=== PATIENT | female | born 1970 | race American Indian/Alaskan Native ===

== ENCOUNTER 2020-07-14 17:55 | Emergency (ER) | payer SELFPAY ==
[2020-07-14 18:56] LABS: Basophils % (Auto) 0.2 % (0.0-1.8); Eosinophils # (Auto) 0.1 K/mm3 (0.0-0.4); Eosinophils % (Auto) 1.1 % (0.0-4.3); Hemoglobin 10.1 gm/dl (10.1-14.3); Lymphocytes # (Auto) 2.8 K/mm3 (1.2-5.4); Lymphocytes % (Auto) 33.3 % (13.4-35.0); Mean Corpuscular HGB Conc 33 % (30-34); Mean Corpuscular Volume 84 fl (79-97); Monocytes # (Auto) 0.6 K/mm3 (0.0-0.8); Platelet Count 410 K/mm3 (140-440); Red Blood Count 3.68 M/mm3 (3.65-5.03); Red Cell Distribution Width 16.3 % (13.2-15.2)
[2020-07-14 19:11] LABS: Alanine Aminotransferase 12 units/L (7-56); Albumin 3.9 g/dL (3.9-5); BUN/Creatinine Ratio 11; Blood Urea Nitrogen 10 mg/dL (7-17); Calcium 9.7 mg/dL (8.4-10.2); Hemolysis Index 0
[2020-07-14 22:01] LABS: Bilirubin,Urine NEG (Negative); Blood,Urine SM (Negative); Color,Urine Yellow (Yellow); Mucus,Urine FEW /HPF; Protein,Urine <15 mg/dL mg/dL (Negative)
[2020-07-14 22:05] LABS: Amphetamine Screen,Urine Negative; Benzodiazepines Screen,Urine Negative; Cannabinoid Screen,Urine Negative; Cocaine Screen,Urine Negative; Methadone Screen,Urine Negative; Opiate Screen,Urine Negative
--- NOTE | 2020-07-14 22:19 | Emergency Department Report ---
ED Psych HPI - General Chief Complaint: Medical Clearance Stated Complaint: HEAD PAIN/ PERSONAL PROBLEM Time Seen by Provider: 07/14/20 21:49 Source: patient Mode of arrival: Ambulatory - History of Present Illness Initial Comments: Patient is a 50-year-old F Congolese female with no known past medical history who is presenting with what appears to be delusions and psychosis. Patient is is checked in because she stated that there are things pressing on her head that is making her hair met. States the control that her has over her during their 5-year divorce is causing her hair to change in texture. She also states that there is a heroin type substance around her home forming a perimeter. States that there is a shingles and patches that are occurring on her pants. Patient very difficult to understand and is not giving a linear story. Patient is is not having any homicidal suicidal thoughts at this time. - Related Data Allergies Allergy/AdvReac Type Severity Reaction Status Date / Time No Known Allergies Allergy Unverified 07/14/20 18:17 ED Review of Systems ROS: Stated complaint: HEAD PAIN/ PERSONAL PROBLEM Other details as noted in HPI Comment: All other systems reviewed and negative ED Past Medical Hx - Past Medical History Previous Medical History?: No - Surgical History Past Surgical History?: No - Social History Smoking Status: Never Smoker Substance Use Type: None ED Physical Exam - General Limitations: No Limitations General appearance: alert, in no apparent distress - Head Head exam: Present: atraumatic, normocephalic - Eye Eye exam: Present: normal appearance, PERRL, EOMI - ENT ENT exam: Present: normal orophraynx, mucous membranes moist - Neck Neck exam: Present: normal inspection - Respiratory Respiratory exam: Present: normal lung sounds bilaterally. Absent: respiratory distress, wheezes, rales, rhonchi - Cardiovascular Cardiovascular Exam: Present: regular rate, normal rhythm, normal heart sounds. Absent: systolic murmur, diastolic murmur, rubs, gallop - GI/Abdominal GI/Abdominal exam: Present: soft, normal bowel sounds. Absent: distended, tenderness, guarding, rebound - Extremities Exam Extremities exam: Present: normal inspection - Back Exam Back exam: Present: normal inspection - Neurological Exam Neurological exam: Present: alert, oriented X3 - Psychiatric Psychiatric exam: Present: normal affect, normal mood - Skin Skin exam: Present: warm, dry, intact, normal color. Absent: rash ED Course Vital Signs 07/14/20 18:18 Temperature 99.0 F Pulse Rate 113 H Respiratory 20 Rate Blood Pressure 182/86 O2 Sat by Pulse 98 Oximetry - Reevaluation(s) Reevaluation #1: 07/14/20 22:19 Patient medically cleared for psychiatric evaluation at this time ED Medical Decision Making - Lab Data Result diagrams: 07/14/20 18:36 07/14/20 18:36 Lab Results 07/14/20 07/14/20 07/14/20 Range/Units 18:36 18:36 18:36 WBC 8.5 (4.5-11.0) K/mm3 RBC 3.68 (3.65-5.03) M/mm3 Hgb 10.1 (10.1-14.3) gm/dl Hct 31.0 (30.3-42.9) % MCV 84 (79-97) fl MCH 28 (28-32) pg MCHC 33 (30-34) % RDW 16.3 H (13.2-15.2) % Plt Count 410 (140-440) K/mm3 Lymph % (Auto) 33.3 (13.4-35.0) % [place] % (Auto) 7.0 (0.0-7.3) % Eos % (Auto) 1.1 (0.0-4.3) % Baso % (Auto) 0.2 (0.0-1.8) % Lymph # (Auto) 2.8 (1.2-5.4) K/mm3 [place] # (Auto) 0.6 (0.0-0.8) K/mm3 Eos # (Auto) 0.1 (0.0-0.4) K/mm3 Baso # (Auto) 0.0 (0.0-0.1) K/mm3 Seg Neutrophils % 58.4 (40.0-70.0) % Seg Neutrophils # 5.0 (1.8-7.7) K/mm3 Sodium 140 (137-145) mmol/L Potassium 3.8 (3.6-5.0) mmol/L Chloride 106.1 (98-107) mmol/L Carbon Dioxide 22 (22-30) mmol/L Anion Gap 16 mmol/L BUN 10 (7-17) mg/dL Creatinine 0.9 (0.6-1.2) mg/dL Estimated GFR > 60 ml/min BUN/Creatinine Ratio 11 % Glucose 113 H (65-100) mg/dL Calcium 9.7 (8.4-10.2) mg/dL Total Bilirubin < 0.20 (0.1-1.2) mg/dL AST 15 (5-40) units/L ALT 12 (7-56) units/L Alkaline Phosphatase 68 (35-129) units/L Total Protein 7.4 (6.3-8.2) g/dL Albumin 3.9 (3.9-5) g/dL Albumin/Globulin Ratio 1.1 % Urine Color (Yellow) Urine Turbidity (Clear) Urine pH (5.0-7.0) Ur Specific [place] (1.003-1.030) Urine Protein (Negative) mg/dL Urine Glucose (UA) (Negative) mg/dL Urine Ketones (Negative) mg/dL Urine Blood (Negative) Urine Nitrite (Negative) Urine Bilirubin (Negative) Urine Urobilinogen (<2.0) mg/dL Ur Leukocyte Esterase (Negative) Urine WBC (Auto) (0.0-6.0) /HPF Urine RBC (Auto) (0.0-6.0) /HPF U Epithel Cells (Auto) (0-13.0) /HPF Urine Mucus /HPF Salicylates < 0.3 L (2.8-20.0) mg/dL Urine Opiates Screen Urine Methadone Screen Acetaminophen (10.0-30.0) ug/mL Ur Barbiturates Screen Ur Phencyclidine Scrn Ur Amphetamines Screen U Benzodiazepines Scrn Urine Cocaine Screen U Marijuana (THC) Screen Drugs of Abuse Note Plasma/Serum Alcohol (0-0.07) % 07/14/20 07/14/20 07/14/20 Range/Units 18:36 18:36 21:47 WBC (4.5-11.0) K/mm3 RBC (3.65-5.03) M/mm3 Hgb (10.1-14.3) gm/dl Hct (30.3-42.9) % MCV (79-97) fl MCH (28-32) pg MCHC (30-34) % RDW (13.2-15.2) % Plt Count (140-440) K/mm3 Lymph % (Auto) (13.4-35.0) % [place] % (Auto) (0.0-7.3) % Eos % (Auto) (0.0-4.3) % Baso % (Auto) (0.0-1.8) % Lymph # (Auto) (1.2-5.4) K/mm3 [place] # (Auto) (0.0-0.8) K/mm3 Eos # (Auto) (0.0-0.4) K/mm3 Baso # (Auto) (0.0-0.1) K/mm3 Seg Neutrophils % (40.0-70.0) % Seg Neutrophils # (1.8-7.7) K/mm3 Sodium (137-145) mmol/L Potassium (3.6-5.0) mmol/L Chloride (98-107) mmol/L Carbon Dioxide (22-30) mmol/L Anion Gap mmol/L BUN (7-17) mg/dL Creatinine (0.6-1.2) mg/dL Estimated GFR ml/min BUN/Creatinine Ratio % Glucose (65-100) mg/dL Calcium (8.4-10.2) mg/dL Total Bilirubin (0.1-1.2) mg/dL AST (5-40) units/L ALT (7-56) units/L Alkaline Phosphatase (35-129) units/L Total Protein (6.3-8.2) g/dL Albumin (3.9-5) g/dL Albumin/Globulin Ratio % Urine Color Yellow (Yellow) Urine Turbidity Clear (Clear) Urine pH 6.0 (5.0-7.0) Ur Specific [place] 1.023 (1.003-1.030) Urine Protein <15 mg/dl (Negative) mg/dL Urine Glucose (UA) Neg (Negative) mg/dL Urine Ketones Neg (Negative) mg/dL Urine Blood Sm (Negative) Urine Nitrite Neg (Negative) Urine Bilirubin Neg (Negative) Urine Urobilinogen 4.0 (<2.0) mg/dL Ur Leukocyte Esterase Neg (Negative) Urine WBC (Auto) 1.0 (0.0-6.0) /HPF Urine RBC (Auto) 6.0 (0.0-6.0) /HPF U Epithel Cells (Auto) 1.0 (0-13.0) /HPF Urine Mucus Few /HPF Salicylates (2.8-20.0) mg/dL Urine Opiates Screen Urine Methadone Screen Acetaminophen 5.0 L (10.0-30.0) ug/mL Ur Barbiturates Screen Ur Phencyclidine Scrn Ur Amphetamines Screen U Benzodiazepines Scrn Urine Cocaine Screen U Marijuana (THC) Screen Drugs of Abuse Note Plasma/Serum Alcohol < 0.01 (0-0.07) % 07/14/20 Range/Units 21:47 WBC (4.5-11.0) K/mm3 RBC (3.65-5.03) M/mm3 Hgb (10.1-14.3) gm/dl Hct (30.3-42.9) % MCV (79-97) fl MCH (28-32) pg MCHC (30-34) % RDW (13.2-15.2) % Plt Count (140-440) K/mm3 Lymph % (Auto) (13.4-35.0) % [place] % (Auto) (0.0-7.3) % Eos % (Auto) (0.0-4.3) % Baso % (Auto) (0.0-1.8) % Lymph # (Auto) (1.2-5.4) K/mm3 [place] # (Auto) (0.0-0.8) K/mm3 Eos # (Auto) (0.0-0.4) K/mm3 Baso # (Auto) (0.0-0.1) K/mm3 Seg Neutrophils % (40.0-70.0) % Seg Neutrophils # (1.8-7.7) K/mm3 Sodium (137-145) mmol/L Potassium (3.6-5.0) mmol/L Chloride (98-107) mmol/L Carbon Dioxide (22-30) mmol/L Anion Gap mmol/L BUN (7-17) mg/dL Creatinine (0.6-1.2) mg/dL Estimated GFR ml/min BUN/Creatinine Ratio % Glucose (65-100) mg/dL Calcium (8.4-10.2) mg/dL Total Bilirubin (0.1-1.2) mg/dL AST (5-40) units/L ALT (7-56) units/L Alkaline Phosphatase (35-129) units/L Total Protein (6.3-8.2) g/dL Albumin (3.9-5) g/dL Albumin/Globulin Ratio % Urine Color (Yellow) Urine Turbidity (Clear) Urine pH (5.0-7.0) Ur Specific [place] (1.003-1.030) Urine Protein (Negative) mg/dL Urine Glucose (UA) (Negative) mg/dL Urine Ketones (Negative) mg/dL Urine Blood (Negative) Urine Nitrite (Negative) Urine Bilirubin (Negative) Urine Urobilinogen (<2.0) mg/dL Ur Leukocyte Esterase (Negative) Urine WBC (Auto) (0.0-6.0) /HPF Urine RBC (Auto) (0.0-6.0) /HPF U Epithel Cells (Auto) (0-13.0) /HPF Urine Mucus /HPF Salicylates (2.8-20.0) mg/dL Urine Opiates Screen Negative Urine Methadone Screen Negative Acetaminophen (10.0-30.0) ug/mL Ur Barbiturates Screen Negative Ur Phencyclidine Scrn Negative Ur Amphetamines Screen Negative U Benzodiazepines Scrn Negative Urine Cocaine Screen Negative U Marijuana (THC) Screen Negative Drugs of Abuse Note Disclamer Plasma/Serum Alcohol (0-0.07) % Critical care attestation.: If time is entered above; I have spent that time in minutes in the direct care of this critically ill patient, excluding procedure time. ED Disposition Condition: Stable
[2020-07-15] MEDS ORDERED: NALOXONE 2 MG/2 ML INJ ONE (08:24)
[2020-07-15] MEDS ORDERED: LORazepam 2 MG/ML VIAL ONE ×2 (08:28→08:39)
--- NOTE | 2020-07-15 08:42 | Consultation ---
History of Present Illness - Reason for Consult Consult date: 07/15/20 Reason for consult: MHE Requesting physician: ANDRÉS GEE - History of Present Psychiatric Illness Per ED Provider: Patient is a 50-year-old F [place] female with no known past medical history who is presenting with what appears to be delusions and psychosis. Patient is is checked in because she stated that there are things pressing on her head that is making her hair met. States the control that her has over her during their 5-year divorce is causing her hair to change in texture. She also states that there is a heroin type substance around her home forming a perimeter. States that there is a shingles and patches that are occurring on her pants. Patient very difficult to understand and is not giving a linear story. Patient is is not having any homicidal suicidal thoughts at this time. PSYCH HPI Patient is a 50-year-old , homeless female with unspecified past psychiatric history who states that" they have tried to pull me crazy but I am not crazy". Patient reports she is here because she has been having burning in the area of her scalp states she pulls her hair she sees budds she bounced them in the head area attaches. 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 Says she is still going through divorce for 5 years hence why she movies around to avoid her ex. Patient reported having kids in the state of [place] she gave me a number for Archana who is one of her daughter at [phone]. Patient appears very disorganized, Attempt was made to contact Archana but no one is picking up. PAST PSYCHIATRIC HISTORY Diagnoses: Unspecified Suicide attempts or Self-harm behavior: None report Prior psychiatric hospitalizations: Unknown Substance Abuse history: Unknown Previous psychiatric medications tried: Unknown Outpatient treatment: Unknown PAST MEDICAL HISTORY: None reported Family Psychiatric History: None reported or documented SOCIAL HISTORY Marital Status: Living Arrangements: Homeless Employment Status: Retired Access to guns/weapons: None reported Education: College History of Abuse: Unknown Legal History: None reported REVIEW OF SYSTEMS Constitutional: Negative for weight loss ENT: Negative for stridor Respiratory: Negative for cough or hemoptysis All other systems reviewed and are negative MENTAL STATUS EXAMINATION General Appearance and Behavior: Age appropriate, good hygiene, not wearing appropriate clothes, good eye contact, cooperative polite with questioning. Cooperation: Participating/engaged Psychomotor Behavior: Psychomotor normal Mood: Good Affect and affective range: euthymic, euphoric Thought Process:Circumstantial, Illogical, Thought Content: Flight of ideas, Illogical, Grandiose, Speech: pressured, loud volume at times Intellectual Functioning: Average Suicidal Ideation: Denies SI Homicidal Ideation: Denies HIl Impulse Control: Impaired Insight and Judgment: Limited insight and judgment Memory: Normal, Attention: Divided attention impaired Orientation: Alert, oriented, Assessment and Plan - Psychiatric problem (1) Schizophrenia Current Visit: Yes Status: Acute Treatment Plan MEDICATIONS: Risks, benefits and alternatives of medications discussed with the patient, questions answered and consent obtained from patient. PSYCHOTHERAPY: Supportive psychotherapy provided MEDICAL: Per primary team DELIRIUM PRECAUTIONS: Please re-orient patient frequently, keep lights on during the day, and minimize benzodiazepines and opiates as these medications could worsen patient's confusion. 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 Case discussed with Dr. Cid who agrees with current disposition LEGAL STATUS: 1013 FOLLOW-UP: Will follow Thank you for the consult. Please contact with any questions and/or concerns. Medications and Allergies Allergies Allergy/AdvReac Type Severity Reaction Status Date / Time No Known Allergies Allergy Unverified 07/14/20 18:17 Mental Status Exam - Vital signs Last Vital Signs Temp 98.0 F 07/15/20 08:12 Pulse 87 07/15/20 08:12 Resp 20 07/15/20 08:12 BP 135/54 07/15/20 08:12 Pulse Ox 98 07/15/20 08:12 Results Result Diagrams: 07/14/20 18:36 07/14/20 18:36 Abnormal lab results 07/14/20 07/14/20 07/14/20 Range/Units 18:36 18:36 18:36 RDW 16.3 H (13.2-15.2) % Glucose 113 H (65-100) mg/dL Salicylates < 0.3 L (2.8-20.0) mg/dL Acetaminophen (10.0-30.0) ug/mL 07/14/20 Range/Units 18:36 RDW (13.2-15.2) % Glucose (65-100) mg/dL Salicylates (2.8-20.0) mg/dL Acetaminophen 5.0 L (10.0-30.0) ug/mL All other labs normal. Assessment and Plan - Psychiatric problem (1) Schizophrenia Current Visit: Yes Status: Acute
[2020-07-15] MEDS: HALOPERIDOL 2 MG TAB PO SCH ×2 (11:01→22:23)
[2020-07-15] MEDS: VALPROIC ACID 250 MG/5 ML ORAL LIQD PO SCH ×2 (11:01→22:23)
--- NOTE | 2020-07-15 15:40 | Cat Scan Report ---
CT head/brain wo con INDICATION: AMS. TECHNIQUE: Routine CT head. All CT scans at this location are performed using CT dose reduction for A DEONNA by means of automated exposure control. COMPARISON: None. FINDINGS: Intracranial: Sauer-white matter differentiation is maintained. No intracranial hemorrhage. No extra a xial collection. No hydrocephalus. No herniation. Sinuses: Incompletely visualized mucosal retention cyst in left maxillary sinus. Paranasal sinuses an d mastoid air cells are essentially clear. Orbits: Globes are intact. Calvarium: No acute fracture. IMPRESSION: 1. No acute intracranial abnormality. Signer Name: Raffi Gu MD Signed: 07/15/2020 3:35 PM Workstation Name: [email or web address]
[2020-07-15 16:10] LABS: HCG Qualitative,Urine Negative (Negative)
[2020-07-16 05:16] VITALS: BP 101/51
--- NOTE | 2020-07-16 09:07 | Progress Note ---
Subjective - Reason for Consult Consult date: 07/16/20 Reason for consult: psychosis - Chief Complaint Chief complaint: The patient was seen today. She is delusional. Her thoughts are disorganized. The patient says she is "resting." She says she did not sleep well. She says "somebody is squeezing my head and has my head matted up." She says "they have joined forces and programmed something inside of me." The patient says "I don't know who's doing it but they are squeezing my head." She denies SI/HI or hallucinations of any kind. The patient is gripping both sides of her head as she speaks. She describes her mood as "so so." REVIEW OF SYSTEMS Constitutional: Negative for weight loss ENT: Negative for stridor Respiratory: Negative for cough or hemoptysis All other systems reviewed and are negative MENTAL STATUS EXAMINATION General Appearance and Behavior: Age appropriate, good hygiene, not wearing appropriate clothes, good eye contact, cooperative polite with questioning. Cooperation: Participating/engaged Psychomotor Behavior: Psychomotor normal Mood: "so-so" Affect and affective range: Restricted Thought Process: Illogical Thought Content: delusions Speech: normal tone and pace Suicidal Ideation: Denies Homicidal Ideation: Denies Hallucinations: Denies Delusions: Yes Impulse Control: Impaired Insight and Judgment: Limited insight and judgment Memory: Normal Attention: Divided attention impaired Orientation: Alert, oriented, Assessment and Plan (1) Schizophrenia Current Visit: Yes Status: Acute Treatment Plan Start Risperidone 0.25mg po BID Start Trazodone 50mg po qhs Risks, benefits and alternatives of medications discussed with the patient, questions answered and consent obtained from patient. PSYCHOTHERAPY: Supportive psychotherapy provided MEDICAL: Per primary team DELIRIUM PRECAUTIONS: Please re-orient patient frequently, keep lights on during the day, and minimize benzodiazepines and opiates as these medications could worsen patient's confusion. 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 LEGAL STATUS: 1013 FOLLOW-UP: Will follow Thank you for the consult. Please contact with any questions and/or concerns. Case discussed with Dr. Cid who agrees with current disposition Mental Status Exam - Vital signs Last Vital Signs Temp 98.1 F 07/16/20 05:15 Pulse 76 07/16/20 05:15 Resp 18 07/16/20 05:15 BP 101/51 03/12/21 05:15 Pulse Ox 98 07/16/20 05:15
[2020-07-16] MEDS ORDERED: risperiDONE 0.25 MG TAB PO SCH (10:00)
[2020-07-16] MEDS ORDERED: traZODone 50 MG TAB PO SCH (22:00)
== END 2020-07-16 08:58 ==
LOC: ED 17:55 → EEVIPCON 17:55 → ED 07-16 08:58
DX: F22 Delusional disorders (principal); Z20.822 Contact with and (suspected) exposure to COVID-19
CPT/HCPCS: 36415; 70450; 80053; 80307; 81001; 81025; 85025; 99285; U0003; 80320; G0480; J2060; J2310

== ENCOUNTER 2020-11-26 03:05 | Emergency (ER) | payer SELFPAY ==
[2020-11-26 03:40] VITALS: BP 156/80
--- NOTE | 2020-11-26 05:40 | Emergency Department Report ---
ED General Adult HPI - General Chief complaint: Skin Rash Stated complaint: CHAFFING TO BUTTOCKS Source: patient, EMS Mode of arrival: Ambulatory Limitations: No Limitations - History of Present Illness Initial comments: Patient is a 50-year-old -[place] female with a history of paranoid schizophrenia, bipolar disorder, anxiety depression who presents to the ED with acute onset persistent itchy dry scaly rashes on her buttocks for the last 1 month. Patient states that the itching is worse when it is hot and when she sweats and states that the rashes have spread to her thighs posteriorly. Patient denies fever, chills, nausea, vomiting, fall, traumatic injury, numbness and tingling or weakness of lower extremities bilaterally, urinary frequency and urgency or chest pain and shortness of breath. MD Complaint: Diffuse dry itchy rashes on her buttocks -: Gradual, month(s) (1) Location: buttocks Radiation: non-radiation Severity scale (0 -10): 2 Quality: burning, aching, constant, other (Itchy) Consistency: constant Improves with: none Worsens with: none Associated Symptoms: denies other symptoms, rash (Dry itchy scaly rashes on her buttocks). denies: confusion, chest pain, cough, diaphoresis, fever/chills, headaches, loss of appetite, malaise, nausea/vomiting, seizure, shortness of breath, syncope, weakness, other Treatments Prior to Arrival: none - Related Data Previous Rx's Medication Instructions Recorded Last Taken Type Terbinafine HCl [Lamisil At 1% 30 gm TP TID #1 tube 11/26/20 Unknown Rx CREAM] Allergies Allergy/AdvReac Type Severity Reaction Status Date / Time No Known Allergies Allergy Unverified 07/14/20 18:17 ED Review of Systems ROS: Stated complaint: CHAFFING TO BUTTOCKS Other details as noted in HPI Constitutional: denies: chills, fever Eyes: denies: eye pain, eye discharge, vision change ENT: denies: ear pain, throat pain Respiratory: denies: cough, shortness of breath, wheezing Cardiovascular: denies: chest pain, palpitations Endocrine: no symptoms reported Gastrointestinal: denies: abdominal pain, nausea, diarrhea Genitourinary: denies: urgency, dysuria, discharge Musculoskeletal: denies: back pain, joint swelling, arthralgia Skin: rash (Dry scaly itchy rashes on the buttocks), pruritus. denies: lesions Neurological: denies: headache, weakness, paresthesias Psychiatric: denies: anxiety, depression Hematological/Lymphatic: denies: easy bleeding, easy bruising ED Past Medical Hx - Past Medical History Previous Medical History?: No Hx Psychiatric Treatment: Yes (Paranoid schizophrenia; bipolar; anxiety and depression) - Surgical History Past Surgical History?: No - Social History Smoking Status: Never Smoker Substance Use Type: None - Medications Home Medications: Home Medications Medication Instructions Recorded Confirmed Last Taken Type Terbinafine HCl [Lamisil At 1% 30 gm TP TID #1 tube 11/26/20 Unknown Rx CREAM] ED Physical Exam - General Limitations: No Limitations General appearance: alert, in no apparent distress - Head Head exam: Present: atraumatic, normocephalic, normal inspection - Eye Eye exam: Present: normal appearance, PERRL, EOMI Pupils: Present: normal accommodation - ENT ENT exam: Present: normal exam, normal orophraynx, mucous membranes moist, TM's normal bilaterally, normal external ear exam - Neck Neck exam: Present: normal inspection, full ROM - Respiratory Respiratory exam: Present: normal lung sounds bilaterally. Absent: respiratory distress, wheezes, rales, rhonchi, stridor, chest wall tenderness, accessory muscle use - Cardiovascular Cardiovascular Exam: Present: regular rate, normal rhythm, normal heart sounds. Absent: systolic murmur, diastolic murmur, rubs, gallop - GI/Abdominal GI/Abdominal exam: Present: soft, normal bowel sounds. Absent: tenderness, guarding, rebound, hyperactive bowel sounds - Extremities Exam Extremities exam: Present: normal inspection, full ROM, normal capillary refill - Back Exam Back exam: Present: normal inspection, full ROM. Absent: tenderness, CVA tenderness (R), CVA tenderness (L), muscle spasm, paraspinal tenderness - Neurological Exam Neurological exam: Present: alert, oriented X3, CN II-XII intact, normal gait, reflexes normal - Psychiatric Psychiatric exam: Present: normal affect, normal mood, anxious. Absent: homicidal ideation, suicidal ideation - Skin Skin exam: Present: warm, dry, intact, normal color, rash (Dry scaly rashes diffusely on the buttocks and thighs) ED Course Vital Signs 11/26/20 03:38 Pulse Rate 76 Respiratory 18 Rate Blood Pressure 156/80 O2 Sat by Pulse 100 Oximetry ED Medical Decision Making - Medical Decision Making This is a 50-year-old -[place] female with a history of paranoid schizophrenia, bipolar disorder, anxiety depression who presents to the ED with acute onset persistent itchy dry scaly rashes on her buttocks for the last 1 month. Patient states that the itching is worse when it is hot and when she sweats and states that the rashes have spread to her thighs posteriorly. In the ED, patient is alert and oriented x3 and is not in distress. Patient will discha rge home on medications based on the physical exam findings of dry scaly rashes on the buttocks consistent with tinea corporis. Patient was advised to follow-up with her primary care physician in 7 to 10 days for reevaluation or return to the ED immediately if symptoms get worse. - Differential Diagnosis Tinea corporis; eczema; cellulitis; folliculitis; Critical care attestation.: If time is entered above; I have spent that time in minutes in the direct care of this critically ill patient, excluding procedure time. ED Disposition Clinical Impression: Tinea corporis Disposition: DC-01 TO HOME OR SELFCARE Is pt being admited?: No Does the pt Need Aspirin: No Condition: Stable Instructions: Body Ringworm Additional Instructions: Apply the medication to the affected area as advised, drink plenty of fluids, follow-up with your primary care physician in 7 to 10 days for reevaluation. Return to the ED immediately if symptoms get worse. Prescriptions: Terbinafine HCl [Lamisil At 1% CREAM] 30 gm TP TID #1 tube Referrals: [facility] [Provider Group] - 3-5 Days Time of Disposition: 05:41 Print Language: PAKIST[place]
== END 2020-11-26 05:50 | disposition home or self-care (01) ==
LOC: ED 03:05
DX: B35.4 Tinea corporis (principal); F20.9 Schizophrenia, unspecified; F41.9 Anxiety disorder, unspecified; F31.9 Bipolar disorder, unspecified
CPT/HCPCS: 99283

== ENCOUNTER 2020-12-03 08:56 | Emergency (ER) | payer SELFPAY ==
[2020-12-03 09:34] VITALS: BP 149/83
[2020-12-03] MEDS ORDERED: ACETAMINOPHEN 500 MG TAB PO ONE (13:19)
--- NOTE | 2020-12-03 13:19 | Emergency Department Report ---
ED Back Pain/Injury HPI - General Chief Complaint: Back Pain/Injury Stated Complaint: BACK PAINS Time Seen by Provider: 12/03/20 13:12 Source: patient Limitations: No Limitations - History of Present Illness Initial Comments: 50 year old male who is currently homeless, presents to the ER today with complaints of low back pain. Patient states that her symptoms started this morning. Patient states that her pain has been intermittent. She states that it feels like somebody is pushing something into her back. She states that is worse when she moves, stands and ambulates. She denies any particular injury or strenuous activity. She denies any radiation of the pain or any associate abdominal pain, lower extremity numbness, tingling, saddle anesthesia, bowel or bladder incontinence or UTI symptoms. She denies any fever or chills. She denies any prior issues with her back in the past. Patient denies any significant past medical history even though her past records shows that she has a past history of schizophrenia, paranoia, bipolar, anxiety and depression. She denies any illicit drug use or alcohol abuse. MD Complaint: back pain -: This morning - Related Data Previous Rx's Medication Instructions Recorded Last Taken Type Terbinafine HCl [Lamisil At 1% 30 gm TP TID #1 tube 11/26/20 Unknown Rx CREAM] Naproxen 500 mg PO BID #20 tablet 12/03/20 Unknown Rx methOCARBAMOL [Robaxin TAB] 500 mg PO Q6H PRN #20 tablet 12/03/20 Unknown Rx Allergies Allergy/AdvReac Type Severity Reaction Status Date / Time No Known Allergies Allergy Unverified 07/14/20 18:17 ED Review of Systems ROS: Stated complaint: BACK PAINS Other details as noted in HPI Comment: All other systems reviewed and negative Constitutional: denies: chills, fever Eyes: denies: eye pain, eye discharge, vision change ENT: denies: ear pain, throat pain Respiratory: denies: cough, shortness of breath, SOB with exertion, SOB at rest, wheezing Cardiovascular: denies: chest pain, palpitations, dyspnea on exertion, edema, syncope, paroxysmal nocturnal dyspnea Gastrointestinal: denies: abdominal pain, nausea, vomiting, diarrhea, constipation, hematemesis, hematochezia Genitourinary: denies: urgency, dysuria, frequency, hematuria, discharge, abnormal menses, dyspareunia Musculoskeletal: back pain. denies: joint swelling, arthralgia, myalgia Skin: denies: rash, lesions, change in color, change in hair/nails, pruritus Neurological: denies: headache, weakness, paresthesias Psychiatric: denies: anxiety, depression, auditory hallucinations, visual hallucinations, homicidal thoughts, suicidal thoughts Hematological/Lymphatic: denies: easy bleeding, easy bruising ED Past Medical Hx - Past Medical History Hx Psychiatric Treatment: Yes (Paranoid schizophrenia; bipolar; anxiety and depression) - Social History Smoking Status: Never Smoker Substance Use Type: None - Medications Home Medications: Home Medications Medication Instructions Recorded Confirmed Last Taken Type Terbinafine HCl [Lamisil At 1% 30 gm TP TID #1 tube 11/26/20 Unknown Rx CREAM] Naproxen 500 mg PO BID #20 tablet 12/03/20 Unknown Rx methOCARBAMOL [Robaxin TAB] 500 mg PO Q6H PRN #20 tablet 12/03/20 Unknown Rx ED Physical Exam - General Limitations: No Limitations General appearance: alert, in no apparent distress, obese, other (Disheveled lady, dressed in unclean malodorous clothing ) - Head Head exam: Present: atraumatic, normocephalic, normal inspection - Eye Eye exam: Present: normal appearance, PERRL, EOMI Pupils: Present: normal accommodation - Neck Neck exam: Present: normal inspection, full ROM. Absent: meningismus - Respiratory Respiratory exam: Present: normal lung sounds bilaterally. Absent: respiratory distress, wheezes, rales, rhonchi - Cardiovascular Cardiovascular Exam: Present: regular rate, normal rhythm, normal heart sounds - GI/Abdominal GI/Abdominal exam: Present: soft. Absent: distended, tenderness, guarding, rebound - Back Exam Back exam: Present: normal inspection, full ROM (She does have full range of motion of her spine but but she does have pain on range of motion.), paraspinal tenderness (Mild tenderness to palpation to bilateral paraspinal muscles mid to upper aspect of the lumbar area), vertebral tenderness (Tenderness to palpation in the mid to upper lumbar area). Absent: CVA tenderness (R), CVA tenderness (L), rash noted - Neurological Exam Neurological exam: Present: alert, oriented X3, CN II-XII intact, normal gait - Psychiatric Psychiatric exam: Present: normal affect, normal mood - Skin Skin exam: Present: intact ED Course Vital Signs 12/03/20 09:31 Temperature 97.9 F Pulse Rate 81 Respiratory 20 Rate Blood Pressure 149/83 [Left] O2 Sat by Pulse 100 Oximetry ED Medical Decision Making - Medical Decision Making Urinalysis reviewed and shows that she has 11 WBCs but no leukocytes or nitrites and no bacteria and patient has no complaints of UTI symptoms. I do not see indication for antibiotics at this time. A urine reflex culture was ordered by the lab and is pending. X-ray shows degenerative changes to the lumbar and sacral spine but otherwise no significant abnormalities. Patient currently sitting comfortably in the bed and is not in any significant pain distress. She is not toxic or ill-appearing. She is neurologically intact with a normal gait in the ER. Her vital signs are stable. Her history, physical examination and diagnostic testing does not suggest the presence of acute spinal epidural abscess, acute epidural bleed, cauda equina syndrome, abdominal/thoracic aortic aneurysm, aortic dissection, kidney stone, pyelonephritis or other acute process requiring further testing, treatment or consultation in the emergency department. Discussed x-ray results and urinalysis results with patient. Discussed treatment plan with patient. She will be given referral to local primary care doctor. Patient expressed understanding of instructions and agree with plan. Patient was stable at time of discharge. Critical care attestation.: If time is entered above; I have spent that time in minutes in the direct care of this critically ill patient, excluding procedure time. ED Disposition Clinical Impression: Lumbar pain, DJD (degenerative joint disease), lumbosacral Disposition: DC-01 TO HOME OR SELFCARE Is pt being admited?: No Does the pt Need Aspirin: No Condition: Stable Instructions: Osteoarthritis, Acute Back Pain, Adult Additional Instructions: Take the naproxen and the muscle relaxer as prescribed. It is important that you follow up with the Primary care clinic listed on your discharge instructions especially if your symptoms persist. Return to the ER if your symptoms changes or worsens in any way. Prescriptions: Naproxen 500 mg PO BID #20 tablet methOCARBAMOL [Robaxin TAB] 500 mg PO Q6H PRN #20 tablet PRN Reason: pain Referrals: [facility] [Provider Group] - 7-10 days Time of Disposition: 16:25
[2020-12-03 15:34] LABS: Bilirubin,Urine NEG (Negative); Blood,Urine LG (Negative); Color,Urine Yellow (Yellow); Protein,Urine <15 mg/dL mg/dL (Negative)
[2020-12-03 15:35] LABS: HCG Qualitative,Urine Negative (Negative)
--- NOTE | 2020-12-03 16:21 | XRay Report ---
LUMBAR SPINE 3 VIEWS INDICATION: back pain. COMPARISON: No relevant prior imaging study available. FINDINGS: No acute fracture is seen, vertebral body height is maintained. While disc space height is maintained, there are anterior marginal osteophytes at L3, L4, and L5. Fus ed anterior spondylophytes are seen in the lower thoracic spine. There appears to be subchondral sclerosis at the SI joints bilaterally. IMPRESSION: 1. No acute findings. 2. Syndesmophytes, some of which are fused in the lower thoracic spine. There is also bilateral SI samantha int disease. Signer Name: Je Mcbride MD Signed: 12/03/2020 4:16 PM Workstation Name: [id number]
== END 2020-12-03 16:41 | disposition home or self-care (01) ==
LOC: ED 08:56
DX: M19.90 Unspecified osteoarthritis, unspecified site (principal); M54.5 Low back pain; F20.0 Paranoid schizophrenia; F31.9 Bipolar disorder, unspecified
CPT/HCPCS: 72100; 81001; 81025; 87086; 99284

== ENCOUNTER 2021-02-28 16:52 | Emergency (ER) | payer SELFPAY ==
[2021-02-28 16:58] VITALS: BP 159/92
[2021-02-28] MEDS ORDERED: LORazepam 2 MG/ML VIAL ONE (18:10)
--- NOTE | 2021-02-28 19:22 | Emergency Department Report ---
ED Back Pain/Injury HPI - General Chief Complaint: Back Pain/Injury Stated Complaint: BACK PAIN Time Seen by Provider: 02/28/21 18:49 Source: patient Limitations: No Limitations - History of Present Illness Initial Comments: 51-year-old female with a past medical history of schizophrenia and is currently homeless presents to the ER today with complaints of low back pain. Patient states that she has been having this back pain since about November 2020. She denies any particular injury at the time she started with her back pain. She states that it does improve after she takes Aleve. She denies any recent injury to worsen the back pain. When asked if she does a lot of walking due to the fact that she is homeless, she states now, she states "I just straddle e along because somebody me like a horse on a buggy." She states that the same back pain she has been having since November. She states that she feels like somebody has put "mormon on her" causing her to have this off and on pain. She states that the pain does not radiate down into her lower legs, she has no associated abdominal pain, she has no bowel or bladder incontinence or saddle anesthesia. She denies any fever or chills at home. MD Complaint: back pain -: month(s) - Related Data Previous Rx's Medication Instructions Recorded Last Taken Type Terbinafine HCl [Lamisil At 1% 30 gm TP TID #1 tube 11/26/20 Unknown Rx CREAM] Naproxen 500 mg PO BID #20 tablet 12/03/20 Unknown Rx methOCARBAMOL [Robaxin TAB] 500 mg PO Q6H PRN #20 tablet 12/03/20 Unknown Rx Acetaminophen [Acetaminophen 8 650 mg PO Q8HR #30 tablet.er 02/28/21 Unknown Rx Hour] Allergies Allergy/AdvReac Type Severity Reaction Status Date / Time No Known Allergies Allergy Unverified 02/28/21 16:58 ED Review of Systems ROS: Stated complaint: BACK PAIN Other details as noted in HPI Comment: All other systems reviewed and negative Constitutional: denies: chills, fever Eyes: denies: eye pain, eye discharge, vision change ENT: denies: ear pain, throat pain Respiratory: denies: cough, shortness of breath, wheezing Cardiovascular: denies: chest pain, palpitations Gastrointestinal: denies: abdominal pain, nausea, diarrhea, constipation, hematemesis, melena, hematochezia Genitourinary: denies: urgency, dysuria, discharge Musculoskeletal: back pain. denies: joint swelling, arthralgia Skin: denies: rash, lesions, change in color, change in hair/nails, pruritus Neurological: denies: headache, weakness, numbness, paresthesias, confusion, abnormal gait, vertigo Psychiatric: denies: anxiety, depression, auditory hallucinations, visual hallucinations, homicidal thoughts, suicidal thoughts Hematological/Lymphatic: denies: easy bleeding, easy bruising, swollen glands ED Past Medical Hx - Past Medical History Hx Psychiatric Treatment: Yes (Paranoid schizophrenia; bipolar; anxiety and depression) - Social History Smoking Status: Unknown if ever smoked - Medications Home Medications: Home Medications Medication Instructions Recorded Confirmed Last Taken Type Terbinafine HCl [Lamisil At 1% 30 gm TP TID #1 tube 11/26/20 Unknown Rx CREAM] Naproxen 500 mg PO BID #20 tablet 12/03/20 Unknown Rx methOCARBAMOL [Robaxin TAB] 500 mg PO Q6H PRN #20 tablet 12/03/20 Unknown Rx Acetaminophen [Acetaminophen 8 650 mg PO Q8HR #30 tablet.er 02/28/21 Unknown Rx Hour] ED Physical Exam - General Limitations: No Limitations General appearance: alert, in no apparent distress, other (Patient is disheveled appearing wearing old clothes thats odors ) - Head Head exam: Present: atraumatic, normocephalic, normal inspection - Eye Eye exam: Present: normal appearance, PERRL, EOMI - ENT ENT exam: Present: normal exam, mucous membranes moist - Neck Neck exam: Present: normal inspection, full ROM - Respiratory Respiratory exam: Present: normal lung sounds bilaterally. Absent: respiratory distress, wheezes, rales, rhonchi - Cardiovascular Cardiovascular Exam: Present: regular rate, normal rhythm, normal heart sounds - GI/Abdominal GI/Abdominal exam: Present: soft. Absent: distended, tenderness, guarding, rebound - Back Exam Back exam: Present: normal inspection, full ROM. Absent: tenderness, paraspinal tenderness, vertebral tenderness - Neurological Exam Neurological exam: Present: alert, oriented X3, CN II-XII intact, normal gait - Psychiatric Psychiatric exam: Present: normal affect, normal mood - Skin Skin exam: Present: intact ED Course Vital Signs 02/28/21 16:56 Temperature 98.1 F Pulse Rate 108 H Respiratory 16 Rate Blood Pressure 159/92 [Left] O2 Sat by Pulse 100 Oximetry ED Medical Decision Making - Medical Decision Making The patient presented with her same chronic back pain. The patient is resting comfortably and, is alert, talkative, interactive and in no distress. The patient is neurologically intact and is ambulatory in the ED. the patient has no fever, no bowel or bladder incontinence, no saddle anesthesia and is otherwise alert and well-appearing. With history, physical examination and diagnostic testing does not suggest the presence of acute spinal epidural abscess, acute epidural bleed, cauda equina syndrome, abdominal/thoracic aortic aneurysm, aortic dissection or other acute process requiring further testing, treatment or consultation in the emergency department. The vital signs have been stable. The patient condition is stable and appropriate for discharge. The patient will pursue further outpatient evaluation with the primary care physician or other designated or consulting physician as indicated in the discharge instructions. Critical care attestation.: If time is entered above; I have spent that time in minutes in the direct care of this critically ill patient, excluding procedure time. ED Disposition Clinical Impression: Chronic low back pain Disposition: 01 HOME / SELF CARE / HOMELESS Is pt being admited?: No Does the pt Need Aspirin: No Condition: Stable Instructions: Chronic Pain, Adult, Chronic Back Pain, [id number] Additional Instructions: You can continue taking the Aleve but you can also take the Tylenol for additional pain control. Follow-up with the orthospine specialist on the sheet given to you as well as the primary care doctor listed on your discharge instructions. Return to the ER if your symptoms changes or worsens in any way. Prescriptions: Acetaminophen [Acetaminophen 8 Hour] 650 mg PO Q8HR #30 tablet.er Referrals: [facility] [Provider Group] - 3-5 Days [facility] [Provider Group] - 3-5 Days Time of Disposition: 19:22
== END 2021-02-28 20:02 | disposition home or self-care (01) ==
LOC: ED 16:52
DX: G89.29 Other chronic pain (principal); M54.59 Other low back pain; F20.0 Paranoid schizophrenia; F41.9 Anxiety disorder, unspecified; F32.9 Major depressive disorder, single episode, unspecified
CPT/HCPCS: 99282; J2060

== ENCOUNTER 2021-04-26 19:30 | Emergency (ER) | payer SELFPAY | END 2021-04-26 22:30 | LOC: ED 19:30 | DX: S99.922A Unspecified injury of left foot, initial encounter (principal); Z53.21 Procedure and treatment not carried out due to patient leaving prior to being seen by health care provider; X58.XXXA Exposure to other specified factors, initial encounter; Y93.89 Activity, other specified; Y92.89 Other specified places as the place of occurrence of the external cause; Y99.8 Other external cause status ==

== ENCOUNTER 2021-04-27 05:27 | Emergency (ER) | payer SELFPAY ==
[2021-04-27 05:41] VITALS: BP 146/82
--- NOTE | 2021-04-27 06:37 | Emergency Department Report ---
ED Lower Extremity HPI - General Chief Complaint: Extremity Injury, Lower Stated Complaint: FOOT PAIN Time Seen by Provider: 04/27/21 06:27 Source: patient Mode of arrival: Ambulatory Limitations: No Limitations - History of Present Illness Initial Comments: Chief complaint: Foot pain HPI: This is a 51-year-old female with history of schizophrenia who presents with right foot pain. She denies any injury. She has pain localized at the right small toe. No other concerns. She denies suicidal homicidal ideation. MD Complaint: other (Right foot pain) -: Gradual, week(s) (1 week) Injury: Foot: Right Severity: mild Worsens With: weight bearing - Related Data Previous Rx's Medication Instructions Recorded Last Taken Type Terbinafine HCl [Lamisil At 1% 30 gm TP TID #1 tube 11/26/20 Unknown Rx CREAM] Naproxen 500 mg PO BID #20 tablet 12/03/20 Unknown Rx methOCARBAMOL [Robaxin TAB] 500 mg PO Q6H PRN #20 tablet 12/03/20 Unknown Rx Acetaminophen [Acetaminophen 8 650 mg PO Q8HR #30 tablet.er 02/28/21 Unknown Rx Hour] Allergies Allergy/AdvReac Type Severity Reaction Status Date / Time No Known Allergies Allergy Unverified 02/28/21 16:58 ED Review of Systems ROS: Stated complaint: FOOT PAIN Other details as noted in HPI Constitutional: denies: fever, malaise Respiratory: denies: see HPI, shortness of breath Gastrointestinal: denies: abdominal pain, nausea, vomiting Skin: denies: change in color, change in hair/nails, pruritus ED Past Medical Hx - Past Medical History Previous Medical History?: Yes Hx Psychiatric Treatment: Yes (Paranoid schizophrenia; bipolar; anxiety and depression) - Social History Smoking Status: Never Smoker - Medications Home Medications: Home Medications Medication Instructions Recorded Confirmed Last Taken Type Terbinafine HCl [Lamisil At 1% 30 gm TP TID #1 tube 11/26/20 Unknown Rx CREAM] Naproxen 500 mg PO BID #20 tablet 12/03/20 Unknown Rx methOCARBAMOL [Robaxin TAB] 500 mg PO Q6H PRN #20 tablet 12/03/20 Unknown Rx Acetaminophen [Acetaminophen 8 650 mg PO Q8HR #30 tablet.er 02/28/21 Unknown Rx Hour] ED Physical Exam - General Limitations: No Limitations General appearance: alert, in no apparent distress - Head Head exam: Present: atraumatic, normocephalic - Extremities Exam Extremities exam: Present: normal inspection, full ROM - Expanded Lower Extremity Exam Right Knee exam: Present: normal inspection, full ROM Lower Leg exam: Present: normal inspection, full ROM Ankle exam: Present: normal inspection, full ROM Foot/Toe exam: Present: normal inspection, full ROM. Absent: tenderness, swelling, laceration, ecchymosis, deformity, crepidus, dislocation, erythema, puncture wound Neuro vascular tendon exam: Present: no vascular compromise Gait: Positive: observed and normal ED Course Vital Signs 04/27/21 05:38 Temperature 97.6 F Pulse Rate 82 Respiratory 16 Rate Blood Pressure 146/82 [Left] O2 Sat by Pulse 98 Oximetry ED Lower Extremity MDM - Medical Decision Making Right foot pain without vascular compromise or notable injury. Foot pain possibly due to poor fitting shoes. Patient is discharged to self-care. Critical care attestation.: If time is entered above; I have spent that time in minutes in the direct care of this critically ill patient, excluding procedure time. ED Disposition Clinical Impression: Right foot pain Disposition: HOME / SELF CARE / HOMELESS Is pt being admited?: No Does the pt Need Aspirin: No Condition: Stable Instructions: Foot Pain Referrals: YVONNE PAREDES MD [Staff Physician] - 3-5 Days
== END 2021-04-27 06:52 | disposition home or self-care (01) ==
LOC: ED 05:27
DX: M79.671 Pain in right foot (principal); F20.0 Paranoid schizophrenia
CPT/HCPCS: 99282

== ENCOUNTER 2021-05-19 01:15 | Emergency (ER) | payer SELFPAY ==
--- NOTE | 2021-05-19 06:12 | Emergency Department Report ---
ED Back Pain/Injury HPI - General Chief Complaint: Back Pain/Injury Stated Complaint: BACK PAIN Time Seen by Provider: 05/19/21 05:56 Source: patient Limitations: No Limitations - History of Present Illness Initial Comments: 51 y/o Turkish female with a history of schizophrenia back pain presents to the emergency pains. Patient denies any recent injuries. States that all things from her symptoms. She is not taking anything for pain. Patient denies any new complaints. MD Complaint: back pain -: year(s) Similar Symptoms Previously: Yes Severity scale (0 -10): 2 Quality: aching Consistency: constant Improves With: none Worsens With: none Associated Symptoms: denies other symptoms - Related Data Previous Rx's Medication Instructions Recorded Last Taken Type Terbinafine HCl [Lamisil At 1% 30 gm TP TID #1 tube 11/26/20 Unknown Rx CREAM] Naproxen 500 mg PO BID #20 tablet 12/03/20 Unknown Rx methOCARBAMOL [Robaxin TAB] 500 mg PO Q6H PRN #20 tablet 12/03/20 Unknown Rx Acetaminophen [Acetaminophen 8 650 mg PO Q8HR #30 tablet.er 02/28/21 Unknown Rx Hour] Allergies Allergy/AdvReac Type Severity Reaction Status Date / Time No Known Allergies Allergy Unverified 02/28/21 16:58 ED Review of Systems ROS: Stated complaint: BACK PAIN Other details as noted in HPI Comment: All other systems reviewed and negative ED Past Medical Hx - Past Medical History Previous Medical History?: Yes Hx Psychiatric Treatment: Yes (Paranoid schizophrenia; bipolar; anxiety and depression) - Surgical History Past Surgical History?: No - Social History Smoking Status: Never Smoker - Medications Home Medications: Home Medications Medication Instructions Recorded Confirmed Last Taken Type Terbinafine HCl [Lamisil At 1% 30 gm TP TID #1 tube 11/26/20 Unknown Rx CREAM] Naproxen 500 mg PO BID #20 tablet 12/03/20 Unknown Rx methOCARBAMOL [Robaxin TAB] 500 mg PO Q6H PRN #20 tablet 12/03/20 Unknown Rx Acetaminophen [Acetaminophen 8 650 mg PO Q8HR #30 tablet.er 02/28/21 Unknown Rx Hour] ED Physical Exam - General Limitations: No Limitations General appearance: alert, in no apparent distress - Head Head exam: Present: atraumatic, normocephalic - Eye Eye exam: Present: normal appearance - ENT ENT exam: Present: mucous membranes moist - Neck Neck exam: Present: normal inspection, full ROM - Respiratory Respiratory exam: Absent: respiratory distress, accessory muscle use - Cardiovascular Cardiovascular Exam: Present: regular rate - Neurological Exam Neurological exam: Present: alert, oriented X3, normal gait - Psychiatric Psychiatric exam: Present: normal affect, normal mood - Skin Skin exam: Present: warm, dry, intact, normal color. Absent: rash ED Medical Decision Making - Medical Decision Making 51 y/o Turkish female with a history of schizophrenia back pain presents to the emergency pains. Patient denies any recent injuries. States that all things from her symptoms. She is not taking anything for pain. Patient denies any new complaints. Critical care attestation.: If time is entered above; I have spent that time in minutes in the direct care of this critically ill patient, excluding procedure time. ED Disposition Clinical Impression: Chronic back pain Disposition: 01 HOME / SELF CARE / HOMELESS Is pt being admited?: No Does the pt Need Aspirin: No Condition: Stable Instructions: What You Need to Know About Chronic Back Pain, Chronic Back Pain, [id number] Additional Instructions: Recommend [id number] Tylenol or ibuprofen as needed for pain. Follow-up with a back specialist. Referrals: PRIMARY MD THIERRY [Primary Care Provider] - 3-5 Days PREET DIAZ II, MD [Staff Physician] - 3-5 Days [facility] [Provider Group] - 3-5 Days Time of Disposition: 06:08
[2021-05-19 07:33] VITALS: BP 125/75
== END 2021-05-19 07:43 | disposition home or self-care (01) ==
LOC: ED 01:15
DX: G89.29 Other chronic pain (principal); M54.9 Dorsalgia, unspecified; F20.9 Schizophrenia, unspecified; F41.9 Anxiety disorder, unspecified; Z79.899 Other long term (current) drug therapy
CPT/HCPCS: 99282

== ENCOUNTER 2021-11-20 17:40 | Emergency (ER) | payer SELFPAY ==
[2021-11-22] MEDS ORDERED: diphenhydrAMINE 25 MG CAP PO ONE (04:05)
[2021-11-22] MEDS ORDERED: ACETAMINOPHEN 500 MG TAB PO ONE (04:05)
--- NOTE | 2021-11-22 06:11 | Emergency Department Report ---
ED Headache HPI - General Chief Complaint: Headache Stated Complaint: HEADACHE Time Seen by Provider: 11/22/21 04:04 - History of Present Illness Initial Comments: Is a 51-year-old female who presents for left anterior lateral headache rated at 5/10. Patient states history of similar headaches similar location intensity and duration. This headache has been persistent for the past 3 days. Patient denies decreased vision there is no photophobia no nausea vomiting no fevers or chills. No throat or ear pain. Patient arrived to ED via bus patient is ambulatory with steady gait patient demonstrates no acute distress. Allergies/Adverse Reactions: Allergies No Known Allergies Allergy (Verified 11/20/21 17:45) Home Medications: Ambulatory Orders Terbinafine HCl [Lamisil At 1% CREAM] 30 gm TP TID #1 tube 11/26/20 Naproxen 500 mg PO BID #20 tablet 12/03/20 methOCARBAMOL [Robaxin TAB] 500 mg PO Q6H PRN #20 tablet 12/03/20 Acetaminophen [Acetaminophen 8 Hour] 650 mg PO Q8HR #30 tablet.er 02/28/21 Acetaminophen [Acetaminophen TAB] 1,000 mg PO Q6HR PRN #30 tablet 11/22/21 Metoclopramide [Reglan] 10 mg PO Q6H PRN #30 tablet 11/22/21 diphenhydrAMINE [Benadryl CAP] 25 mg PO Q6HR PRN #30 capsule 11/22/21 ED Review of Systems ROS: Stated complaint: HEADACHE Other details as noted in HPI Constitutional: denies: chills, fever Eyes: denies: eye pain, eye discharge, vision change ENT: denies: ear pain, throat pain Respiratory: denies: cough, shortness of breath, wheezing Cardiovascular: denies: chest pain, palpitations Endocrine: no symptoms reported Gastrointestinal: denies: abdominal pain, nausea, vomiting, diarrhea Genitourinary: denies: urgency, dysuria, discharge Musculoskeletal: denies: back pain, joint swelling, arthralgia Skin: denies: rash, lesions Neurological: as per HPI Psychiatric: denies: anxiety, depression Hematological/Lymphatic: denies: easy bleeding, easy bruising ED Past Medical Hx - Past Medical History Hx Psychiatric Treatment: Yes (Paranoid schizophrenia; bipolar; anxiety and depression) - Social History Smoking Status: Never Smoker - Medications Home Medications: Home Medications Medication Instructions Recorded Confirmed Last Taken Type Terbinafine HCl [Lamisil At 1% 30 gm TP TID #1 tube 11/26/20 Unknown Rx CREAM] Naproxen 500 mg PO BID #20 tablet 12/03/20 Unknown Rx methOCARBAMOL [Robaxin TAB] 500 mg PO Q6H PRN #20 tablet 12/03/20 Unknown Rx Acetaminophen [Acetaminophen 8 650 mg PO Q8HR #30 tablet.er 02/28/21 Unknown Rx Hour] Acetaminophen [Acetaminophen TAB] 1,000 mg PO Q6HR PRN #30 tablet 11/22/21 Unknown Rx Metoclopramide [Reglan] 10 mg PO Q6H PRN #30 tablet 11/22/21 Unknown Rx diphenhydrAMINE [Benadryl CAP] 25 mg PO Q6HR PRN #30 capsule 11/22/21 Unknown Rx ED Physical Exam - General Limitations: No Limitations General appearance: alert, in no apparent distress - Head Head exam: Present: normocephalic, normal inspection - Eye Eye exam: Present: PERRL, EOMI. Absent: conjunctival injection, nystagmus Pupils: Present: normal accommodation - ENT ENT exam: Present: normal orophraynx, mucous membranes moist, TM's normal bilaterally, normal external ear exam - Neck Neck exam: Present: normal inspection, full ROM. Absent: tenderness, meningismus, lymphadenopathy, thyromegaly - Respiratory Respiratory exam: Present: normal lung sounds bilaterally. Absent: respiratory distress, wheezes, stridor, chest wall tenderness - Cardiovascular Cardiovascular Exam: Present: regular rate, normal rhythm, normal heart sounds. Absent: systolic murmur, diastolic murmur, rubs, gallop - GI/Abdominal GI/Abdominal exam: Present: soft, normal bowel sounds. Absent: distended, tenderness - Rectal Rectal exam: Present: deferred - Extremities Exam Extremities exam: Present: normal inspection, full ROM, normal capillary refill. Absent: pedal edema - Back Exam Back exam: Present: normal inspection, full ROM. Absent: CVA tenderness (R), CVA tenderness (L) - Neurological Exam Neurological exam: Present: alert, oriented X3, CN II-XII intact, normal gait, reflexes normal. Absent: motor sensory deficit - Expanded Neurological Exam Expanded Patient oriented to: Present: person, place, time Speech: Present: fluid speech Cranial nerves: EOM's Intact: Normal Motor strength exam: RUE: 5, LUE: 5, RLE: 5, LLE: 5 Best Eye Response ([place]): (4) open spontaneously Best Motor Response ([place]): (6) obeys commands Best Verbal Response ([place]): (5) oriented [place] Total: 15 - Psychiatric Psychiatric exam: Present: normal affect, normal mood - Skin Skin exam: Present: warm, dry, intact, normal color. Absent: rash ED Course Vital Signs 11/20/21 11/22/21 17:42 05:10 Temperature 99.8 F H Pulse Rate 81 Respiratory 18 16 Rate Blood Pressure 134/84 [Left] O2 Sat by Pulse 97 Oximetry ED Medical Decision Making - Medical Decision Making Headache improved medications given in ED plan DC to home with prescriptions. Follow-up with primary care doctor in 2 to 3 days. Return to emergency department should symptoms worsen. Patient verbalized agreement understanding with discharge plan. Patient DC'd home in stable condition at this time. Critical care attestation.: If time is entered above; I have spent that time in minutes in the direct care of this critically ill patient, excluding procedure time. ED Disposition Clinical Impression: Headache Qualifiers: Headache type: unspecified Headache chronicity pattern: acute headache Intractability: not intractable Qualified Code(s): R51.9 - Headache, unspecified Disposition: 01 HOME / SELF CARE / HOMELESS Is pt being admited?: No Does the pt Need Aspirin: No Condition: Stable Instructions: General Headache Without Cause Additional Instructions: Take medications as prescribed, follow-up with your doctor in 2 to 3 days. Return to emergency department should symptoms worsen. Prescriptions: Acetaminophen [Acetaminophen TAB] 1,000 mg PO Q6HR PRN #30 tablet PRN Reason: Headache diphenhydrAMINE [Benadryl CAP] 25 mg PO Q6HR PRN #30 capsule PRN Reason: Headache Metoclopramide [Reglan] 10 mg PO Q6H PRN #30 tablet PRN Reason: Headache Referrals: [facility] [Provider Group] - 3-5 Days Forms: Work/School Release Form(ED) Time of Disposition: 06:22
[2021-11-22 06:48] VITALS: BP 117/67
== END 2021-11-22 06:49 | disposition home or self-care (01) ==
LOC: ED 17:40
DX: R51.9 Headache, unspecified (principal); F20.0 Paranoid schizophrenia; F41.9 Anxiety disorder, unspecified; F32.9 Major depressive disorder, single episode, unspecified; F17.290 Nicotine dependence, other tobacco product, uncomplicated
CPT/HCPCS: 99283

== ENCOUNTER 2021-12-23 08:30 | Emergency (ER) | payer SELFPAY ==
--- NOTE | 2021-12-23 10:52 | Emergency Department Report ---
HPI - General Chief Complaint: Psych Time Seen by Provider: 12/23/21 09:51 - HPI HPI: Room 1 The patient is a 51-year-old female with a history of schizophrenia presenting with delusions. The patient states "I have been programmed." Patient also ramb les on about needing to see a "Budding doctor." When asked what that was she states is a doctor for mu-ism. Patient denies suicidal or homicidal ideation. Patient denies auditory visual hallucinations ED Past Medical Hx - Past Medical History Previous Medical History?: No Hx Psychiatric Treatment: Yes (Paranoid schizophrenia; bipolar; anxiety and depression) - Surgical History Past Surgical History?: No - Family History Family history: no significant - Social History Smoking Status: Never Smoker Substance Use Type: None (Denies illicit drug use) - Medications Home Medications: Home Medications Medication Instructions Recorded Confirmed Last Taken Type Terbinafine HCl [Lamisil At 1% 30 gm TP TID #1 tube 11/26/20 Unknown Rx CREAM] Naproxen 500 mg PO BID #20 tablet 12/03/20 Unknown Rx methOCARBAMOL [Robaxin TAB] 500 mg PO Q6H PRN #20 tablet 12/03/20 Unknown Rx Acetaminophen [Acetaminophen 8 650 mg PO Q8HR #30 tablet.er 02/28/21 Unknown Rx Hour] Acetaminophen [Acetaminophen TAB] 1,000 mg PO Q6HR PRN #30 tablet 11/22/21 Unknown Rx Metoclopramide [Reglan] 10 mg PO Q6H PRN #30 tablet 11/22/21 Unknown Rx diphenhydrAMINE [Benadryl CAP] 25 mg PO Q6HR PRN #30 capsule 11/22/21 Unknown Rx ED Review of Systems ROS: Stated complaint: IRRITATION ON THIGHS Other details as noted in HPI Comment: Unobtainable due to pts medical conditions Physical Exam - Physical Exam Vital Signs: Vital Signs 12/23/21 08:39 Temperature 99.1 F Pulse Rate 85 Respiratory 18 Rate Blood Pressure 149/77 [Left] O2 Sat by Pulse 99 Oximetry Physical Exam: GENERAL: The patient is well-developed well-nourished female lying on stretcher not appearing to be in acute distress. [] HEENT: Normocephalic. Atraumatic. Extraocular motions are intact. Patient has moist mucous membranes. NECK: Supple. Trachea midline CHEST/LUNGS: Clear to auscultation. There is no respiratory distress noted. HEART/CARDIOVASCULAR: Regular. There is no tachycardia. There is no gallop rub or murmur. ABDOMEN: Abdomen is soft, nontender. Patient has normal bowel sounds. There is no abdominal distention. SKIN: There is no rash. There is no edema. There is no diaphoresis. NEURO: The patient is awake and alert. The patient is cooperative. The patient has no focal neurologic deficits. The patient has normal speech MUSCULOSKELETAL: There is no evidence of acute injury. ED Course Vital Signs 12/23/21 08:39 Temperature 99.1 F Pulse Rate 85 Respiratory 18 Rate Blood Pressure 149/77 [Left] O2 Sat by Pulse 99 Oximetry ED Medical Decision Making - Lab Data Result diagrams: 12/23/21 10:42 12/23/21 10:42 Laboratory Tests 12/23/21 12/23/21 12/23/21 10:42 10:42 10:42 WBC 4.8 RBC 3.95 Hgb 9.5 L Hct 29.9 L MCV 76 L MCH 24 L MCHC 32 RDW 16.3 H Plt Count 337 Lymph % (Auto) 33.7 [place] % (Auto) 6.7 Eos % (Auto) 0.1 Baso % (Auto) 0.3 Lymph # (Auto) 1.6 [place] # (Auto) 0.3 Eos # (Auto) 0.0 Baso # (Auto) 0.0 Seg Neutrophils % 59.2 Seg Neutrophils # 2.8 Sodium 135 L Potassium 3.9 Chloride 102.4 Carbon Dioxide 21 L Anion Gap 16 BUN 8 Creatinine 0.7 Estimated GFR > 60 BUN/Creatinine Ratio 11 Glucose 94 Calcium 9.2 Salicylates < 0.3 L Acetaminophen SARS-CoV-2 (PCR) 12/23/21 12/23/21 10:42 11:57 WBC RBC Hgb Hct MCV MCH MCHC RDW Plt Count Lymph % (Auto) [place] % (Auto) Eos % (Auto) Baso % (Auto) Lymph # (Auto) [place] # (Auto) Eos # (Auto) Baso # (Auto) Seg Neutrophils % Seg Neutrophils # Sodium Potassium Chloride Carbon Dioxide Anion Gap BUN Creatinine Estimated GFR BUN/Creatinine Ratio Glucose Calcium Salicylates Acetaminophen 5.0 L SARS-CoV-2 (PCR) Positive A - Differential Diagnosis Schizophrenia Critical care attestation.: If time is entered above; I have spent that time in minutes in the direct care of this critically ill patient, excluding procedure time. ED Disposition Clinical Impression: Schizophrenia, SARS-CoV-2 positive Disposition: 30 STILL A PATIENT Is pt being admited?: No Does the pt Need Aspirin: No Condition: Stable Additional Instructions: Professional and Agency Contacts To help [facility] (27/11) [place] Crisis Line: Suicide Prevention Line: Crisis Text Line: Text START to [phone] Emergency: 911 Outpatient COMMUNITY Behavioral Health Resources: [facility]EL[facility]: [facility] [address] [place], [place] [address] [facility] [address] [place] [address] Sunday thru Sunday - 8am - 5pm Call to schedule an assessment for mental health and substance abuse prog hank [facility] Address: [address] [place] [address] Sunday thru Sunday- 7am-2pm [facility] Address: [address] [place] [address] Sunday thru Sunday: 8:30AM-5PM Time of Disposition: 13:25 (Awaiting acceptance)
[2021-12-23 11:08] LABS: Basophils % (Auto) 0.3 % (0.0-1.8); Eosinophils % (Auto) 0.1 % (0.0-4.3); Hematocrit 29.9 % (30.3-42.9); Hemoglobin 9.5 gm/dl (10.1-14.3); Lymphocytes # (Auto) 1.6 K/mm3 (1.2-5.4); Lymphocytes % (Auto) 33.7 % (13.4-35.0); Mean Corpuscular HGB Conc 32 % (30-34); Mean Corpuscular Volume 76 fl (79-97); Monocytes # (Auto) 0.3 K/mm3 (0.0-0.8); Monocytes % (Auto) 6.7 % (0.0-7.3); Platelet Count 337 K/mm3 (140-440); Red Blood Count 3.95 M/mm3 (3.65-5.03); Red Cell Distribution Width 16.3 % (13.2-15.2)
[2021-12-23 11:22] LABS: BUN/Creatinine Ratio 11; Blood Urea Nitrogen 8 mg/dL (7-17); Calcium 9.2 mg/dL (8.4-10.2); Hemolysis Index 0
--- NOTE | 2021-12-23 12:35 | Consultation ---
History of Present Illness - Reason for Consult Consult date: 12/23/21 Reason for consult: Mental health evaluation - History of Present Psychiatric Illness HPI: The patient is a 51-year-old female with a history of schizophrenia presenting with delusions. The patient states "I have been programmed." Patient also rambles on about needing to see a "Budding doctor." When asked what that was she states is a doctor for catholic. Patient denies suicidal or homicidal ideation. Patient denies auditory visual hallucinations. The patient was seen today. The patient is delusional. 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 The patient states that continues to ramble " I was irritated and something was burning in by buttocks." She states she thinks that her is out to get her. She admits to hearing voices " I hear them," but denies visual hallucinations. PAST PSYCHIATRIC HISTORY: Diagnoses: Schizophrenia Suicide attempts or Self-harm behavior: Denies Prior psychiatric hospitalizations: yes Substance Abuse history: denies Previous psychiatric medications tried: Risperidone Outpatient treatment: Denies PAST MEDICAL HISTORY: None reported Family Psychiatric History: None reported or documented SOCIAL HISTORY Marital Status:Single Living Arrangements: Homeless Employment Status: Unemployed Access to guns/weapons: Denies Education:2 year college History of Abuse:Denies Legal History: Denies REVIEW OF SYSTEMS Constitutional: Negative for weight loss ENT: Negative for stridor Respiratory: Negative for cough or hemoptysis All other systems reviewed and are negative MENTAL STATUS EXAMINATION General Appearance and Behavior: Age appropriate, good hygiene, wearing appropriate clothes. calm, cooperative Cooperation: Cooperative Psychomotor Behavior: Psychomotor normal Mood: confused Affect and affective range: congruent with stated mood Thought Process: labile Thought Content:Delusions Speech: Normal tone and pace Suicidal Ideation: Denies Homicidal Ideation: Denies Hallucinations:AH Yes- non-commanding Delusions: Yes Impulse Control: normal Insight and Judgment: limited insight and judgment Memory: Limited Attention: attentive Orientation: a/o Assessment (1) Delusional disorder Treatment Plan Continue home medication Start Risperidone 1mg po BID Medical: per primary Sitter: defer to primary Disposition: Recommend acute psychiatric inpatient treatment. Will follow. Thanks Case staffed with Dr. Cid Medications and Allergies Medications and Allergies Allergies Allergy/AdvReac Type Severity Reaction Status Date / Time No Known Allergies Allergy Verified 11/20/21 17:45 Home Medications Medication Instructions Recorded Confirmed Last Taken Type Terbinafine HCl [Lamisil At 1% 30 gm TP TID #1 tube 11/26/20 Unknown Rx CREAM] Naproxen 500 mg PO BID #20 tablet 12/03/20 Unknown Rx methOCARBAMOL [Robaxin TAB] 500 mg PO Q6H PRN #20 tablet 12/03/20 Unknown Rx Acetaminophen [Acetaminophen 8 650 mg PO Q8HR #30 tablet.er 02/28/21 Unknown Rx Hour] Acetaminophen [Acetaminophen TAB] 1,000 mg PO Q6HR PRN #30 tablet 11/22/21 Unknown Rx Metoclopramide [Reglan] 10 mg PO Q6H PRN #30 tablet 11/22/21 Unknown Rx diphenhydrAMINE [Benadryl CAP] 25 mg PO Q6HR PRN #30 capsule 11/22/21 Unknown Rx Mental Status Exam - Vital signs Last Vital Signs Temp 99.1 F 12/23/21 08:39 Pulse 85 12/23/21 08:39 Resp 18 12/23/21 08:39 BP 149/77 12/23/21 08:39 Pulse Ox 99 12/23/21 11:57 Results Result Diagrams: 12/23/21 10:42 12/23/21 10:42 Abnormal lab results 12/23/21 12/23/21 12/23/21 Range/Units 10:42 10:42 10:42 Sodium 135 L (137-145) mmol/L Carbon Dioxide 21 L (22-30) mmol/L Salicylates < 0.3 L (2.8-20.0) mg/dL Acetaminophen 5.0 L (10.0-30.0) ug/mL All other labs normal.
[2021-12-23] MEDS: risperiDONE 1 MG TAB PO SCH ×3 (14:36→22:32)
[2021-12-23] MEDS ORDERED: ZIPRASIDONE MESYLATE 20 MG VIAL IM ONE (16:20)
[2021-12-23] MEDS ORDERED: diphenhydrAMINE 50 MG/ML VIAL IM ONE (16:20)
--- NOTE | 2021-12-23 16:23 | Event Note ---
51-year-old with schizophrenia with paranoid delusions and acute psychosis refusing to take p.o. medications and refusing to change into ED hold psychiatric scrubs. IM Geodon and Davisryl has been ordered for patient cooperation. [id number] recommended by nurse practitioner and filled out by me. Urine collection pending. Patient is COVID-positive.
[2021-12-23] MEDS ORDERED: WATER FOR INJ Sterile (PF) 10 ML ONE (16:25)
[2021-12-23 16:52] LABS: Color,Urine Yellow (Yellow)
[2021-12-23 17:06] LABS: Bacteria,Urine 1+ /HPF (Negative); Mucus,Urine FEW /HPF
[2021-12-23 17:33] LABS: Amphetamine Screen,Urine Negative; Benzodiazepines Screen,Urine Negative; Cannabinoid Screen,Urine Negative; Cocaine Screen,Urine Negative; Methadone Screen,Urine Negative; Opiate Screen,Urine Negative
[2021-12-24] MEDS: risperiDONE 1 MG TAB PO SCH (09:55)
--- NOTE | 2021-12-24 10:16 | Progress Note ---
Subjective - Reason for Consult Consult date: 12/24/21 Reason for consult: psychosis - Chief Complaint Chief complaint: The patient was seen this morning. She continues to be delusional, talking about "broadcasting and surveillance" and having AH. REVIEW OF SYSTEMS Constitutional: Negative for weight loss ENT: Negative for stridor Respiratory: Negative for cough or hemoptysis All other systems reviewed and are negative MENTAL STATUS EXAMINATION General Appearance and Behavior: Age appropriate, good hygiene, wearing appropriate clothes. calm, cooperative Cooperation: Cooperative Psychomotor Behavior: Psychomotor normal Mood: calm Affect and affective range: congruent with stated mood Thought Process: labile Thought Content:Delusions Speech: Normal tone and pace Suicidal Ideation: Denies Homicidal Ideation: Denies Hallucinations:AH Yes- non-commanding Delusions: Yes Impulse Control: normal Insight and Judgment: limited insight and judgment Memory: Limited Attention: attentive Orientation: a/o Assessment (1) Delusional disorder Treatment Plan Continue home medication Start Risperidone 1mg po BID Medical: per primary Sitter: defer to primary Disposition: Recommend acute psychiatric inpatient treatment. Will follow. Thanks Case staffed with Dr. Cid Medications and Allergies Medications and Allergies Mental Status Exam - Vital signs Last Vital Signs Temp 98.5 F 12/24/21 09:25 Pulse 66 12/24/21 09:25 Resp 20 12/24/21 09:25 BP 108/56 12/24/21 09:25 Pulse Ox 97 12/24/21 09:25
--- NOTE | 2021-12-24 13:53 | Event Note ---
Date: 12/24/21 51 yo F admitted to the ER psych unit with delusional disorder. Pt is found to be Covid 19 virus positive. She evaluated this morning by Psych and continue to recommend inpatient treatment and to start Risperidone 1 mg PO BID. No other modifying or associated factors reported.
[2021-12-25] MEDS: risperiDONE 1 MG TAB PO SCH ×2 (02:28→10:39)
--- NOTE | 2021-12-25 10:44 | Progress Note ---
Subjective - Reason for Consult Consult date: 12/25/21 Reason for consult: Mental health evaluation - Chief Complaint Chief complaint: The patient was seen this morning. She reports doing well. She denies any current suicidal/homicidal ideation and denies hallucinations. REVIEW OF SYSTEMS Constitutional: Negative for weight loss ENT: Negative for stridor Respiratory: Negative for cough or hemoptysis All other systems reviewed and are negative MENTAL STATUS EXAMINATION General Appearance and Behavior: Age appropriate, good hygiene, wearing appropriate clothes. calm, cooperative Cooperation: Cooperative Psychomotor Behavior: Psychomotor normal Mood: calm Affect and affective range: congruent with stated mood Thought Process: Goal directed Thought Content:Not suicidal Speech: Normal tone and pace Suicidal Ideation: Denies Homicidal Ideation: Denies Hallucinations:Denies Delusions: Yes Impulse Control: normal Insight and Judgment: limited insight and judgment Memory: Limited Attention: attentive Orientation: a/o Assessment (1) Delusional disorder Treatment Plan Case management Continue home medication Continue Risperidone 1mg po BID Medical: per primary Sitter: defer to primary Disposition: Do not recommend acute psychiatric inpatient treatment. Unit Aid will provide patient with psychiatric outpatient resources. Will sign off. Thanks Case staffed with Dr. Cid Medications and Allergies Medications and Allergies Mental Status Exam - Vital signs Last Vital Signs Temp 99.7 F H 12/24/21 21:17 Pulse 77 12/24/21 21:17 Resp 16 12/24/21 21:17 BP 120/52 12/24/21 21:17 Pulse Ox 96 12/24/21 21:17
--- NOTE | 2021-12-25 12:27 | Event Note ---
Date: 12/25/21 This patient is admitted to the ER psych unit with delusional disorder. Pt is found to be Covid 19 virus positive. She evaluated this morning by Psych discontinue follow up and recommended to be continued on Risperidone 1 mg PO BID going home. No other modifying or associated factors reported. So patient will be discharge home today.
[2021-12-25 13:51] VITALS: BP 111/50
== END 2021-12-25 13:51 | disposition home or self-care (01) ==
LOC: ED 08:30
DX: U07.1 COVID-19 (principal); F20.9 Schizophrenia, unspecified; Z79.899 Other long term (current) drug therapy
CPT/HCPCS: 36415; 80048; 80307; 81001; 85025; 99284; J3486; U0003; 80320; G0480; J1200